=== PATIENT | male | born 2000 | race Caucasian/White ===

== ENCOUNTER 2023-02-05 09:33 | Emergency (ER) | payer MEDICAID ==
[~2023-02-05] VITALS: Ht 175.3 cm; Wt 68.2 kg
[2023-02-05 09:37] VITALS: BP 146/77
[2023-02-05] MEDS ORDERED: HYDROcodone/acetaminophen 5mg/325mg tablet PO STA (10:44)
[2023-02-05] MEDS ORDERED: AMOX-117 PO (10:51)
[2023-02-05] MEDS ORDERED: NAPR-56 PO (10:51)
== END 2023-02-05 10:58 | disposition home or self-care (01) ==
LOC: ER 09:34
DX: K04.7 Periapical abscess without sinus (principal)
CPT/HCPCS: 99283

== ENCOUNTER 2023-11-02 18:03 | Emergency (ER) | payer MEDICAID ==
[~2023-11-02] VITALS: Ht 177.8 cm; Wt 68.0 kg
[2023-11-02 18:27] VITALS: BP 107/58; PULSE 65; RESP 16; O2SAT 99
[2023-11-02 18:47] VITALS: TEMP 98.6
== END 2023-11-02 18:50 | disposition home or self-care (01) ==
LOC: ER 18:04
DX: F11.10 Opioid abuse, uncomplicated (principal); Z79.899 Other long term (current) drug therapy
CPT/HCPCS: 99281

== ENCOUNTER 2023-12-05 14:44 | Emergency (ER) | payer MEDICAID ==
[~2023-12-05] VITALS: Ht 177.8 cm; Wt 63.6 kg
[2023-12-05 14:47] VITALS: BP 128/67; PULSE 71; RESP 18; TEMP 98; O2SAT 98
[2023-12-05] MEDS ORDERED: AMOX-117 PO (17:37)
== END 2023-12-05 17:46 | disposition home or self-care (01) ==
LOC: ER 14:45
DX: L03.012 Cellulitis of left finger (principal)
CPT/HCPCS: 99283